=== PATIENT | male | born 1960 ===

== ENCOUNTER → 2024-09-22 07:16 | Outpatient (REF) | payer MEDICARE, OTHER, SELFPAY | LOC: MRI 07:16 | PROVIDERS: ATTENDING PHYSICIAN Student in an Organized Health Care Education/Training Program; FAMILY PHYSICIAN Nurse Practitioner Adult Health | DX: I42.1 Obstructive hypertrophic cardiomyopathy (principal); H05.50 Retained (old) foreign body following penetrating wound of unspecified orbit; S05.50XA Penetrating wound with foreign body of unspecified eyeball, initial encounter | CPT/HCPCS: 70030 ==